=== PATIENT | male | born 1970 | race Caucasian/White ===

== ENCOUNTER 2020-07-25 07:34 | Observation (INO) | payer BC ==
[~2020-07-25] VITALS: Ht 175.3 cm; Wt 93.4 kg
[2020-07-25 07:43] VITALS: BP 140/95
[2020-07-25] MEDS ORDERED: COZAAR 25 MG TA25 M1 PO (07:45)
[2020-07-25] MEDS ORDERED: HYDROCHLOROTHIA25 M1 PO (07:45)
[2020-07-25] MEDS ORDERED: NORVASC 2.5 MG2.5 M1 PO (07:46)
[2020-07-25] MEDS ORDERED: PROPRANOLOL 20M20 MG PO (07:48)
[2020-07-25 08:19] LABS: APTT 24.7 Seconds (25.0-31.3)
[2020-07-25 08:20] LABS: ABSOLUTE BASOPHILS 0.1 thou/uL (0.0-0.2); ABSOLUTE EOSINOPHILS 0.1 thou/uL (0.0-0.7); ABSOLUTE LYMPHOCYTES 1.5 thou/uL (0.8-5.3); ABSOLUTE MONOCYTES 0.6 thou/uL (0.0-1.2); ABSOLUTE NEUTROPHILS 3.4 thou/uL (1.6-8.1); EOSINOPHILS 1.1 %; HEMATOCRIT 45.5 % (42.0-52.0); HEMOGLOBIN 16.2 gm/dL (14.0-18.0); LYMPHOCYTES 27.4 %; MCH 33.1 pg (26.0-34.0); MCHC 35.7 g/dL (28.0-37.0); MCV 92.9 fL (80.0-100.0); MONOCYTES 10.3 %; MPV 7.8 fl. (7.2-11.1); NUCLEATED RBCS 0 /100WBC; PLATELET COUNT* 214 thou/uL (150-400); POLYS 60.2 %; WBC 5.6 thou/uL (4.0-11.0)
[2020-07-25 08:23] LABS: CALCIUM 8.8 mg/dL (8.5-10.1); CREATININE 1.1 mg/dL (0.6-1.3); POTASSIUM 3.6 mmol/L (3.5-5.1)
[2020-07-25 08:34] LABS: ALBUMIN 4.2 g/dL (3.4-5.0); MAGNESIUM 1.8 mg/dL (1.8-2.4); TOTAL BILIRUBIN 1.1 mg/dL (<0.1-1.0); TOTAL PROTEIN 8.1 g/dL (6.4-8.2)
--- NOTE | 2020-07-25 10:00 | EKG ---
[place] [address] ELECTROCARDIOGRAM REPORT Name: GERARDCRISTIANHUGH Monet Room: [facility]#: [id number] Admission: 07/25/20 Attend Phys: Discharge: Date of : 74 Date of Service: 07/25/20 0754 Report #: [id number] THIS REPORT FOR: //name// 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: [facility] : 1970 Requested By: Juvenal Dominique Order Number: [id number] MD: Valentino White Measurements Intervals [place] Rate: 67 P: 32 OK: 142 QRS: -30 QRSD: 102 T: 11 QT: 372 QTc: 393 Interpretive Statements Sinus rhythm Left ventricular hypertrophy Baseline wander in lead(s) II,III,aVR,aVF No previous ECG available for comparison Electronically Signed On 07-25-2020 9:59:51 CDT by Valentino White [email or web address] <ELECTRONICALLY SIGNED> By: Valentino White MD, [facility] 07/25/20 0959 [id number] Valentino White MD, [facility] /EPI
[2020-07-25 11:05] VITALS: BP 122/80
[2020-07-25 16:00] VITALS: BP 120/78
--- NOTE | 2020-07-25 17:22 | EXE ---
[place] [address] STRESS ECHOCARDIOGRAM Name: GERARDHUGH Monet Room: [address] Angela#: [id number] Admission: 07/25/20 Attend Phys: Marcell Rodgers Discharge: Date of : 74 Date of Service: 07/25/20 1722 Report #: [id number] THIS REPORT FOR: cc: FAM - No family physician/PCP FAM - No family physician/PCP Valentino White MD [facility] ~ APPROVED REPORT Study performed: 07/25/2020 16:08:45 Exam: Stress Echocardiogram Indication: Chest pain , Dyspnea Patient Location: In-Patient Stress Nurse: Tennille Croft RN Room #: 226 Supervising Physician: Valentino White MD Ht: 5 ft 9 in HR: 84 bpm BP: 129/100 mmHg Medical History Cardiac Risk Factors: Age, HTN, Hyperlipidemia, Tobacco History (Former) Procedure The patient underwent an Exercise Stress Test using the Dayday Protocol. Blood pressure, heart rate, and EKG were monitored. An Echocardiogram was performed by sand technician in four stages in quad fashion. At peak stress, four selected images were obtained and placed side by side with resting images for comparison. Stress Test Details Stress Test: Exercise stress testing was performed using a Dayday protocol. HR Resting HR: 84 bpm Max Heart Rate (APMHR): 173 bpm Max HR Achieved: 160 bpm Target HR (85% APMHR): 147 bpm % of APMHR: 92 Recovery HR: 94 bpm HR response to stress: Normal HR response to stress BP Resting BP: 129/100 mmHg Max BP: 179/85 [place] [address] STRESS ECHOCARDIOGRAM Name: GERARDHUGH Monet Room: [address]#: [id number] Admission: 07/25/20 Attend Phys: Marcell Rodgers Discharge: Date of : 74 Date of Service: 07/25/20 1722 Report #: [id number] Recovery BP: 113/76 mmHg BP response to stress: Normal blood pressure response to stress. ECG Resting ECG: sinus rhythm, minor nonspecific st-t changes Stress ECG: no ischemic st-t changes Arrhythmia: no arrhythmias Clinical Reason for Termination: Completed protocol Exercise duration: 10 min 00 sec Highest Stage Achieved: Stage 4: 4.2 mph at 16% grade. Exercise capacity: 11.82 METs Pre-Stress Echo The resting Echocardiogram showed normal left ventricular contractility with an estimated Ejection Fraction of about 55-60%. Normal wall motion in all segments on baseline images. Post-Stress Echo The stress Echocardiogram showed normal left ventricular contractility with an estimated Ejection Fraction of about >70%. Normal augmentation of wall motion in all segments on post stress images. Conclusion Clinical Response: Non-ischemic Exercise Capacity: Average Stress ECG Response: Non-ischemic Stress Echo Images: Non-ischemic Other Information Study Quality: Good <ELECTRONICALLY SIGNED> By: Valentino White MD, FAC 07/25/201721 21 21 Valentino White MD, FACC /INF
[2020-07-25 20:00] VITALS: BP 107/73
[2020-07-26 00:46] VITALS: BP 108/70
[2020-07-26 04:00] VITALS: BP 114/80
[2020-07-26 08:00] VITALS: BP 124/82
[2020-07-26 11:43] VITALS: BP 124/82
== END 2020-07-26 12:40 | disposition home or self-care (01) ==
LOC: M.ERS 07:34 → M.2W 08:58 → M.TBA-ER 08:58 → M.2W 11:49
PROVIDERS: Emergency Medicine Emergency Medical Services; ADMIT Internal Medicine; ATTEND Internal Medicine
DX: R07.89 Other chest pain (principal); R06.02 Shortness of breath; R11.2 Nausea with vomiting, unspecified; I16.0 Hypertensive urgency; E80.6 Other disorders of bilirubin metabolism; I10 Essential (primary) hypertension; Z87.891 Personal history of nicotine dependence; Z86.73 Personal history of transient ischemic attack (TIA), and cerebral infarction without residual deficits; Z79.899 Other long term (current) drug therapy; Z20.828 Contact with and (suspected) exposure to other viral communicable diseases